=== PATIENT | male | born 1955 | race Caucasian/White ===

== ENCOUNTER 2018-09-24 14:15 | Observation (INO) | payer BC ==
[2018-09-24] MEDS ORDERED: SODIUM CHLORIDE 0.9% 500 ML 500 ML IV STA (14:48)
[2018-09-24] MEDS ORDERED: ASPIRIN 81 MG PO STA (14:48)
[2018-09-24] MEDS ORDERED: NITROGLYCERIN OINT 1 INCH/GM PACKET TOPICAL STA (14:48)
--- NOTE | 2018-09-24 14:54 | ED ---
General Adult HPI - General Chief complaint: Chest Pain Stated complaint: Chest pain, SOB Time Seen by Provider: 09/24/18 14:20 Source: patient, RN notes reviewed Mode of arrival: wheelchair Limitations: no limitations - History of Present Illness Initial comments: This a 63-year-old male who presents emergency Department complaining of epigastric abdominal pain and pain in both shoulder blades and pain going up the left side of his neck. Patient also states he has some tingling in both of his hands much more than the right than the left. Patient states it started yesterday when he went to work and it came on again today. Patient was post to go away on a trip today but when he got to the airport felt very weak and tired especially in his legs they decided come to the primary medical care doctor's office and they recommended that he comes to the emergency department. Patient denies any fever chills or cough per patient denies headache patient denies any numbness or weakness. Patient denies lightheadedness dizziness or near syncopal episode. Patient states currently he has no epigastric pain but still has pain in both upper trapezius muscles and into the upper back. - Related Data Home Medications Medication Instructions Recorded Confirmed Aspirin EC [Ecotrin Low Dose] 81 mg PO DAILY 09/24/18 09/24/18 Ibuprofen [Motrin Ib] 400 mg PO Q6H PRN 09/24/18 09/24/18 Allergies Allergy/AdvReac Type Severity Reaction Status Date / Time No Known Allergies Allergy Verified 09/24/18 14:40 Review of Systems ROS Statement: Those systems with pertinent positive or pertinent negative responses have been documented in the HPI. ROS Other: All systems not noted in ROS Statement are negative. Past Medical History Past Medical History: No Reported History History of Any Multi-Drug Resistant Organisms: None Reported Additional Past Surgical History / Comment(s): eye surgery Past Psychological History: No Psychological Hx Reported Smoking Status: Light tobacco smoker Past Alcohol Use History: Occasional Past Drug Use History: None Reported General Exam - General Exam Comments Initial Comments: GENERAL: Patient is well-developed and well-nourished. Patient is nontoxic and well- hydrated and is in mild distress. ENT: Neck is soft and supple. No significant lymphadenopathy is noted. Oropharynx is clear. Moist mucous membranes. Neck has full range of motion without eliciting any pain. EYES: The sclera were anicteric and conjunctiva were pink and moist. Extraocular movements were intact and pupils were equal round and reactive to light. Eyelids were unremarkable. PULMONARY: Unlabored respirations. Good breath sounds bilaterally. No audible rales rhonchi or wheezing was noted. CARDIOVASCULAR: There is a regular rate and rhythm without any murmurs gallops or rubs. ABDOMEN: Soft and nontender with normal bowel sounds. No palpable organomegaly was noted. There is no palpable pulsatile mass. SKIN: Skin is clear with no lesions or rashes and otherwise unremarkable. NEUROLOGIC: Patient is alert and oriented x3. Cranial nerves II through XII are grossly intact. Motor and sensory are also intact. Normal speech, volume and content. Symmetrical smile. MUSCULOSKELETAL: Normal extremities with adequate strength and full range of motion. No lower extremity swelling or edema. No calf tenderness. LYMPHATICS: No significant lymphadenopathy is noted PSYCHIATRIC: Normal psychiatric evaluation. Limitations: no limitations Course Vital Signs 09/24/18 14:21 Temperature 98.1 F Pulse Rate 82 Respiratory 18 Rate Blood Pressure 157/88 O2 Sat by Pulse 97 Oximetry Medical Decision Making - Medical Decision Making EKG shows normal sinus rhythm at 70 bpm AK interval is 190 QRS is 96 QT interval 364 QTC is 414. Patient's EKG shows no ST segment elevation or depression or T wave abnormalities are noted Chest x-ray shows no acute abnormalities. I did a CT of the patient's abdomen because it lipase was 650. It did not show any acute abnormalities. Patient states Nitropaste and aspirin seemed to take away a lot of the neck and upper back pain. I spoke with sound physician's agreed to admit the patient admitted the patient. I admitted the patient and wrote admitting orders. - Lab Data Result diagrams: 09/24/18 14:40 09/24/18 14:40 Lab Results 09/24/18 09/24/18 09/24/18 Range/Units 14:40 14:40 14:40 WBC 8.4 (3.8-10.6) k/uL RBC 5.82 (4.30-5.90) m/uL Hgb 17.7 H (13.0-17.5) gm/dL Hct 51.5 (39.0-53.0) % MCV 88.5 (80.0-100.0) fL MCH 30.5 (25.0-35.0) pg MCHC 34.4 (31.0-37.0) g/dL RDW 13.3 (11.5-15.5) % Plt Count 270 (150-450) k/uL Neutrophils % 74 % Lymphocytes % 20 % Monocytes % 4 % Eosinophils % 1 % Basophils % 0 % Neutrophils # 6.2 (1.3-7.7) k/uL Lymphocytes # 1.7 (1.0-4.8) k/uL Monocytes # 0.3 (0-1.0) k/uL Eosinophils # 0.1 (0-0.7) k/uL Basophils # 0.0 (0-0.2) k/uL PT 10.3 (9.0-12.0) sec INR 1.0 (<1.2) APTT 24.1 (22.0-30.0) sec Sodium 142 (137-145) mmol/L Potassium 4.5 (3.5-5.1) mmol/L Chloride 102 (98-107) mmol/L Carbon Dioxide 29 (22-30) mmol/L Anion Gap 11 mmol/L BUN 16 (9-20) mg/dL Creatinine 1.06 (0.66-1.25) mg/dL Est GFR (CKD-EPI)AfAm 85 (>60 ml/min/1.73 sqM) Est GFR (CKD-EPI)NonAf 74 (>60 ml/min/1.73 sqM) Glucose 99 (74-99) mg/dL Calcium 10.8 H (8.4-10.2) mg/dL Magnesium 2.0 (1.6-2.3) mg/dL Total Bilirubin 0.5 (0.2-1.3) mg/dL AST 30 (17-59) U/L ALT 31 (21-72) U/L Alkaline Phosphatase 54 (38-126) U/L Troponin I (0.000-0.034) ng/mL Total Protein 7.9 (6.3-8.2) g/dL Albumin 4.9 (3.5-5.0) g/dL Amylase 79 (30-110) U/L Lipase 656 H (23-300) U/L 09/24/18 Range/Units 14:40 WBC (3.8-10.6) k/uL RBC (4.30-5.90) m/uL Hgb (13.0-17.5) gm/dL Hct (39.0-53.0) % MCV (80.0-100.0) fL MCH (25.0-35.0) pg MCHC (31.0-37.0) g/dL RDW (11.5-15.5) % Plt Count (150-450) k/uL Neutrophils % % Lymphocytes % % Monocytes % % Eosinophils % % Basophils % % Neutrophils # (1.3-7.7) k/uL Lymphocytes # (1.0-4.8) k/uL Monocytes # (0-1.0) k/uL Eosinophils # (0-0.7) k/uL Basophils # (0-0.2) k/uL PT (9.0-12.0) sec INR (<1.2) APTT (22.0-30.0) sec Sodium (137-145) mmol/L Potassium (3.5-5.1) mmol/L Chloride (98-107) mmol/L Carbon Dioxide (22-30) mmol/L Anion Gap mmol/L BUN (9-20) mg/dL Creatinine (0.66-1.25) mg/dL Est GFR (CKD-EPI)AfAm (>60 ml/min/1.73 sqM) Est GFR (CKD-EPI)NonAf (>60 ml/min/1.73 sqM) Glucose (74-99) mg/dL Calcium (8.4-10.2) mg/dL Magnesium (1.6-2.3) mg/dL Total Bilirubin (0.2-1.3) mg/dL AST (17-59) U/L ALT (21-72) U/L Alkaline Phosphatase (38-126) U/L Troponin I <0.012 (0.000-0.034) ng/mL Total Protein (6.3-8.2) g/dL Albumin (3.5-5.0) g/dL Amylase (30-110) U/L Lipase (23-300) U/L Disposition Clinical Impression: Atypical chest pain, Elevated lipase Disposition: ADMITTED IP TO THIS [facility] Referrals: Valentina Maldonado MD [Primary Care Provider] - 1-2 days Time of Disposition: 17:12
--- NOTE | 2018-09-24 15:14 | XR ---
EXAMINATION TYPE: XR chest 2V DATE OF EXAM: 09/24/2018 COMPARISON: NONE HISTORY: Chest pain TECHNIQUE: Frontal and lateral views of the chest are obtained. FINDINGS: There is no focal air space opacity, pleural effusion, or pneumothorax seen. The cardiac silhouette size is within normal limits. The osseous structures are intact. IMPRESSION: No acute cardiopulmonary process.
[2018-09-24 15:18] LABS: Basophils % (A) 0 %; Eosinophils # (A) 0.1 k/uL (0-0.7); Eosinophils % (A) 1 %; HCT 51.5 % (39.0-53.0); HGB 17.7 gm/dL (13.0-17.5); Lymphocytes # (A) 1.7 k/uL (1.0-4.8); Lymphocytes % (A) 20 %; MCH 30.5 pg (25.0-35.0); MCHC 34.4 g/dL (31.0-37.0); MCV 88.5 fL (80.0-100.0); Mean Platelet Volume 7.8; Monocytes # (A) 0.3 k/uL (0-1.0); Monocytes % (A) 4 %; Neutrophils # (A) 6.2 k/uL (1.3-7.7); Neutrophils % (A) 74 %; Platelet Count 270 k/uL (150-450); RBC 5.82 m/uL (4.30-5.90); RDW 13.3 % (11.5-15.5); WBC 8.4 k/uL (3.8-10.6)
[2018-09-24 15:19] LABS: Albumin 4.9 g/dL (3.5-5.0); Calcium 10.8 mg/dL (8.4-10.2); Potassium 4.5 mmol/L (3.5-5.1); Total Bilirubin 0.5 mg/dL (0.2-1.3); Total Protein 7.9 g/dL (6.3-8.2)
[2018-09-24 15:22] LABS: Partial Thromboplastin Time 24.1 sec (22.0-30.0); Prothrombin Time 10.3 sec (9.0-12.0)
--- NOTE | 2018-09-24 17:03 | CT ---
EXAMINATION TYPE: CT abdomen pelvis w con DATE OF EXAM: 09/24/2018 COMPARISON: None HISTORY: epigastric pain CT DLP: 900.2 mGycm Automated exposure control for dose reduction was used. TECHNIQUE: Helical acquisition of images was performed from the lung bases through the pelvis. CONTRAST: Performed without Oral Contrast and with IV Contrast, patient injected with 100 mL of Isovue 300. FINDINGS: Lung bases are clear. There is no pleural effusion. Heart size is normal. There is no pericardial eff usion. Stomach spleen pancreas gallbladder or liver appear normal. Bile ducts are not dilated. There is no adrenal mass. Kidneys show satisfactory contrast opacification. There is no hydronephrosi s. Bladder distends smoothly. There is no inguinal hernia. There is no free fluid in the pelvis. There is no ascites or free air. There is no mesenteric edema. Appendix is not seen. There is no sign of thickened appendix. There is no sign of bowel obstruction. There are large bowel diverticula. The re is no sign of diverticulitis. There is degenerative disc space narrowing at L4-5 L5-S1 with vacuum disc. There is similar change al so at L3-4. I see no bony destructive process. IMPRESSION: THERE IS SOME DIVERTICULOSIS OF THE DESCENDING COLON. NO SIGN OF ACUTE ABDOMEN AND PELVIS. I DO NOT S EE A CAUSE FOR EPIGASTRIC PAIN.
[2018-09-24] MEDS ORDERED: NITROGLYCERIN SL TABS 0.4 MG TAB SUBLINGUAL PRN (17:13)
[2018-09-24] MEDS ORDERED: HYDROcodone/APAP 5-325MG 1 EACH TAB PO PRN (18:59)
[2018-09-24] MEDS ORDERED: ONDANSETRON 4 MG/2 ML VIAL IVP PRN (18:59)
[2018-09-24] MEDS ORDERED: MELATONIN 3 MG TABLET PO PRN (18:59)
[2018-09-24] MEDS ORDERED: NALOXONE 0.4 MG/ML 1 ML VIAL IV PRN (18:59)
[2018-09-24] MEDS ORDERED: ACETAMINOPHEN TAB 325 MG TAB PO PRN (18:59)
--- NOTE | 2018-09-24 19:02 | P.HPIM ---
History of Present Illness H&P Date: 09/24/18 Chief Complaint: back pain Patient is a 63-year-old male with no significant past medical history disease Dr. Maldonado. He presented to the ER with complaints of back pain and lower extremity weakness. In the ER he underwent an extensive evaluation. His vital signs within normal limits on arrival. Initial laboratory analysis showed a slightly elevated lipase at 656 and calcium level of 10.8. His troponin was negative. There is concern that this might be related to cardiac etiology. EKG showed normal sinus rhythm at a rate of [address]-T wave changes. He underwent a CT abdomen and pelvis which showed no acute process. He was given a dose of aspirin and nitro. His pain eased from 4-2. Patient states that yesterday when he was at work he started having some back pain. He describes it as in between his shoulder blades with some radiation up into his neck that feels like a stiffness. He states it has been constant. It is associated with some right arm tingling. He states that the pain is at a with an intermittent tingling. It is not associated with any shortness of breath, nausea, vomiting, lightheadedness, or diaphoresis. He did feel slightly flushed yesterday. He states that he took 2 ibuprofen yesterday secondary to a headache but otherwise does not use NSAIDs on a regular basis. He also noted some epigastric pain across the bottom of his rib cage but denies any pain up into his chest. Today he went to the airport to leave on a business trip. When he was walking through the airport he felt very fatigued and as if his legs were heavy and difficult to move. He did not have any lower extremity numbness or tingling at that point in time. He then elected not to on the airplane and proceeded to the hospital. He states his father from myocardial infarction at age 70. He has no known history of any cardiac disease and he has never had a stress test. He denies any recent cough, cold, fever, flu, dysuria. He denies any recent weight loss or weight gain. He has not done any unusual activities. He denies any injury to his back. He states his last set of blood work was approximately 4 years ago. Review of Systems Pertinent positives and negatives as discussed in HPI, a complete review of systems was performed and all other systems are negative. Past Medical History Past Medical History: No Reported History History of Any Multi-Drug Resistant Organisms: None Reported Additional Past Surgical History / Comment(s): Eye surgery 2 as a child for strabismus Past Psychological History: No Psychological Hx Reported Smoking Status: Light tobacco smoker Past Alcohol Use History: Occasional Past Drug Use History: None Reported Additional History: Smokes a cigar every once in a while but not on a regular basis, drinks 2 beers weekly. - Past Family History Father Family Medical History: Myocardial Infarction ([place]) Additional Family Medical History / Comment(s): from myocardial infarction at age 70 Mother Additional Family Medical History / Comment(s): Mother-dementia Medications and Allergies Home Medications Medication Instructions Recorded Confirmed Type Aspirin EC [Ecotrin Low Dose] 81 mg PO DAILY 09/24/18 09/24/18 History Ibuprofen [Motrin Ib] 400 mg PO Q6H PRN 09/24/18 09/24/18 History Allergies Allergy/AdvReac Type Severity Reaction Status Date / Time No Known Allergies Allergy Verified 09/24/18 14:40 Physical Exam Osteopathic Statement: *. No significant issues noted on an osteopathic structural exam other than those noted in the History and Physical/Consult. Vitals: Vital Signs Temp Pulse Resp BP Pulse Ox 09/24/18 14:21 98.1 F 82 18 157/88 97 Intake and Output 09/24/18 09/24/18 09/24/18 06:59 14:59 22:59 Other: Weight 83.915 kg General: non toxic, no distress, appears at stated age, normal weight Derm: no unusual rashes/lesions no unusual ecchymoses, warm, dry Head: atraumatic, normocephalic, symmetric Eyes: EOMI, no lid lag, anicteric sclera, pupils equal round reactive to light ENT: Nose and ears atraumatic, no thrush, no pharyngeal erythema Neck: No thyromegaly, no cervical lymphadenopathy, trachea midline, supple Mouth: no lip lesion, mucus membranes moist Cardiovascular: S1S2 reg, no murmur, positive posterior tibial pulse bilateral, no edema, capillary refill less than 2 seconds Lungs: CTA bilateral, no rhonchi, no rales , no accessory muscle use Abdominal: soft, nontender to palpation, no guarding, no appreciable organomegaly, normal bowel sounds Ext: no gross muscle atrophy, muscle strength 5 out of 5 in all 4 extremities grossly, no contractures, complains of cramping in left leg when raising, positive Spurling's test on the right, no pain to palpation over spinous process of cervical and thorasic spine Neuro: CN II-XI grossly intact, light touch intact all 4 extremities, finger to nose within normal limits, Psych: Alert, oriented, appropriate affect Results CBC & Chem 7: 09/24/18 14:40 09/24/18 14:40 Labs: Abnormal Lab Results - Last 24 Hours (Table) 09/24/18 09/24/18 Range/Units 14:40 14:40 Hgb 17.7 H (13.0-17.5) gm/dL Calcium 10.8 H (8.4-10.2) mg/dL Lipase 656 H (23-300) U/L Comments: EKG is reviewed by myself revealed normal sinus rhythm at a rate of 78, LA 190, QRS 96, QTC 414, no significant ST-T wave changes Chest x-ray: report reviewed CT scan - abdomen: report reviewed Thrombosis Risk Factor Assmnt - DVT/VTE Prophylaxis DVT/VTE Prophylaxis: Low risk, early ambulation encouraged Assessment and Plan Assessment: Back pain with pain and numbness radiating into the right neck and arm, concern for anginal equivalent -Serial troponin, aspirin, echo in a.m., cardiology consultation, check lipid profile -Concern for cervical radiculopathy -If pain continues would consider CT cervical and thoracic spine to rule out cervical disc disease/lesion Hypercalcemia -Undetermined significance -Gentle IV fluids overnight as patient has not ate or drink much today -Repeat in a.m. -If remains elevated in a.m. would consider CTA rule out bone lesion Elevated lipase without signs of pancreatitis on computed tomography scan -IV fluids overnight -Repeat lipase in a.m. Family history of cardiac disease Intermittent tobacco abuse - cessation - no indication for nicotine replacement The patient is placed in observation with an anticipated less than 2 per night stay for evaluation of back pain. Surrogate decision-maker: - Elena CODE STATUS:Full, no prolonged mechanical ventilation if no hope of recovery DVT prophylaxis: early ambulation Discussed with: patient, nursing Anticipated discharge date: in AM Anticipated discharge place: home A total of 65 minutes was spent on the care of this complex patient more than 50% of the time was spent in counseling and care coordination.
[2018-09-24] MEDS: NITROGLYCERIN OINT 1 INCH/GM PACKET TOPICAL SCH (19:36)
[2018-09-24] MEDS: SODIUM CHLORIDE 0.9% 1,000 ML IV SCH (19:39)
[2018-09-25] MEDS: NITROGLYCERIN OINT 1 INCH/GM PACKET TOPICAL SCH ×2 (01:10→06:05)
[2018-09-25 03:08] LABS: Calcium 9.3 mg/dL (8.4-10.2); Potassium 3.9 mmol/L (3.5-5.1)
[2018-09-25 07:45] VITALS: RESP 18
--- NOTE | 2018-09-25 08:18 | P.CRDCN ---
History of Present Illness Consult date: 09/25/18 History of present illness: This is a 63-year-old gentleman with no significant past medical history started having discomfort in between the shoulders and the back starting morning. The toe was radiating from one side to the other of the back and also to some extent to the anterior aspect of the chest. This was not respirophasic. It was not associated with any physical activity. Yesterday morning patient went to the emergency room and continued to have this discomfort and also felt that the legs were weak. Patient did not feel comfortable and cancel his flight and came back. His EKGs did not reveal any acute changes. His cardiac enzyme studies have been negative. He seemed more comfortable this morning. His lipase was slightly elevated. The etiology of his symptoms are not clear. The possibility of a disc disease to be considered. Patient does complain of some tingling and numbness in both hands. From [facility] standpoint we will going to get an echocardiogram done. If the echocardiogram is normal and patient's chest pains are relieved, patient could be discharged home to consider for an outpatient stress test. If the echo Card[place] showed any abnormalities or if patient continues to have the symptoms, the test could be done as an inpatient. The computed tomography scan of the cervical spine also is a good idea to rule out any disc disease. Past Medical History Past Medical History: No Reported History History of Any Multi-Drug Resistant Organisms: None Reported Additional Past Surgical History / Comment(s): Eye surgery 2 as a child for strabismus Past Anesthesia/Blood Transfusion Reactions: No Reported Reaction Additional Past Anesthesia/Blood Transfusion Reaction / Comment(s): patient has never had any anesthesia or blood transfusion Past Psychological History: No Psychological Hx Reported Smoking Status: Light tobacco smoker Past Alcohol Use History: Occasional Past Drug Use History: None Reported - Past Family History Father Family Medical History: Myocardial Infarction ([place]) Additional Family Medical History / Comment(s): from myocardial infarction at age 70 Mother History Unknown: Yes Family Medical History: Dementia Additional Family Medical History / Comment(s): Mother-dementia Medications and Allergies Home Medications Medication Instructions Recorded Confirmed Type Aspirin EC [Ecotrin Low Dose] 81 mg PO DAILY 09/24/18 09/24/18 History Ibuprofen [Motrin Ib] 400 mg PO Q6H PRN 09/24/18 09/24/18 History Allergies Allergy/AdvReac Type Severity Reaction Status Date / Time No Known Allergies Allergy Verified 09/24/18 14:40 Physical Exam Vitals: Vital Signs Temp Pulse Pulse Resp BP BP Pulse Ox 09/25/18 07:57 97 09/25/18 07:10 98.0 F 61 18 127/81 97 09/25/18 03:57 97.7 F 59 L 16 115/68 96 09/25/18 03:47 16 09/25/18 00:00 16 09/24/18 23:52 97.8 F 62 16 115/61 96 09/24/18 22:30 16 09/24/18 21:00 97.9 F 72 16 135/73 96 09/24/18 20:50 98.6 F 79 68 H 124/84 95 09/24/18 19:30 79 124/84 96 09/24/18 17:40 124/74 93 L 09/24/18 17:10 135/85 95 09/24/18 16:10 71 14 134/80 96 09/24/18 15:40 70 6 L 131/84 97 09/24/18 14:21 98.1 F 82 18 157/88 97 Intake and Output 09/24/18 09/25/18 09/25/18 22:59 06:59 14:59 Other: Voiding Method Toilet Toilet # Voids 1 GENERAL EXAM: Patient is alert and oriented and doesn't appear to be in any acute distress HEENT: Normocephalic. Normal reaction of pupils, equal size, normal range of extraocular motion. No erythema or exudates in the throat. NECK: No masses, no nuchal rigidity. CHEST: No chest wall deformity. LUNGS: Equal air entry with no crackles or wheeze. HEART: S1 and S2 normal with no audible mumurs or gallops. Regular rhythm, femorals equal on both sides.. ABDOMEN: No hepatosplenomegaly, normal bowel sounds, no guarding or rigidity. SKIN: No rashes CENTRAL NERVOUS SYSTEM: No focal deficits. EXTREMITIES: No cyanosis, clubbing or edema. Results 09/24/18 14:40 09/25/18 02:50 Cardiac Enzymes 09/24/18 09/24/18 09/24/18 Range/Units 14:40 14:40 21:25 AST 30 (17-59) U/L Troponin I <0.012 <0.012 (0.000-0.034) ng/mL 09/25/18 Range/Units 02:50 AST (17-59) U/L Troponin I <0.012 (0.000-0.034) ng/mL Coagulation 09/24/18 Range/Units 14:40 PT 10.3 (9.0-12.0) sec APTT 24.1 (22.0-30.0) sec Lipids 09/25/18 Range/Units 02:50 Triglycerides 87 (<150) mg/dL Cholesterol 155 (<200) mg/dL HDL Cholesterol 33 L (40-60) mg/dL CBC 09/24/18 Range/Units 14:40 WBC 8.4 (3.8-10.6) k/uL RBC 5.82 (4.30-5.90) m/uL Hgb 17.7 H (13.0-17.5) gm/dL Hct 51.5 (39.0-53.0) % Plt Count 270 (150-450) k/uL Comprehensive Metabolic Panel 09/24/18 09/25/18 Range/Units 14:40 02:50 Sodium 142 139 (137-145) mmol/L Potassium 4.5 3.9 (3.5-5.1) mmol/L Chloride 102 108 H (98-107) mmol/L Carbon Dioxide 29 26 (22-30) mmol/L BUN 16 19 (9-20) mg/dL Creatinine 1.06 1.08 (0.66-1.25) mg/dL Glucose 99 101 H (74-99) mg/dL Calcium 10.8 H 9.3 (8.4-10.2) mg/dL AST 30 (17-59) U/L ALT 31 (21-72) U/L Alkaline Phosphatase 54 (38-126) U/L Total Protein 7.9 (6.3-8.2) g/dL Albumin 4.9 (3.5-5.0) g/dL Current Medications Generic Name Dose Route Start Last Admin Trade Name Freq PRN Reason Stop Dose Admin Acetaminophen 650 mg 09/24/18 18:59 09/24/18 22:36 Tylenol Tab PO 650 mg Q6HR PRN Administration Mild Pain or Fever > 100.5 Hydrocodone Bitart/Acetaminophen 1 each 09/24/18 18:59 Basile 5-325 PO Q4HR PRN Moderate Pain Aspirin 81 mg 09/25/18 09:00 Aspirin PO DAILY ASHLIE Sodium Chloride 1,000 mls @ 75 mls/hr 09/24/18 19:00 09/24/18 19:39 Saline 0.9% IV 75 mls/hr .[id number] ASHLIE Administration Melatonin 3 mg 09/24/18 18:59 Melatonin PO HS PRN Insomnia Naloxone HCl 0.2 mg 09/24/18 18:59 Narcan IV Q2M PRN Opioid Reversal Nitroglycerin 0.4 mg 09/24/18 17:13 Nitrostat SUBLINGUAL Q5M PRN Chest Pain Ondansetron HCl 4 mg 09/24/18 18:59 Zofran IVP Q8HR PRN Nausea And Vomiting Intake and Output 09/24/18 09/25/18 09/25/18 22:59 06:59 14:59 Other: Voiding Method Toilet Toilet # Voids 1 09/24/18 14:40 09/25/18 02:50 EKG Interpretations (text) Sinus rhythm Assessment and Plan (1) Atypical chest pain Current Visit: Yes Status: Acute Code(s): R07.89 - OTHER CHEST PAIN SNOMED Code(s): 391220221 (2) Elevated lipase Current Visit: Yes Status: Acute Code(s): R74.8 - ABNORMAL LEVELS OF OTHER SERUM ENZYMES SNOMED Code(s): 577277044 Plan: We'll get an echocardiogram done. If the echo shows normal wall motion without any significant segmental wall motion defects and he patient remains free of pain, patient could be discharged home to have an outpatient stress test. Computed tomography scan of the cervical spine may also be considered.
[2018-09-25] MEDS: SODIUM CHLORIDE 0.9% 1,000 ML IV SCH (08:31)
[2018-09-25] MEDS ORDERED: ASPIRIN 325 MG TAB PO SCH (09:00)
[2018-09-25] MEDS ORDERED: ASPIRIN 81 MG PO SCH (09:00)
[2018-09-25 12:10] VITALS: BP 134/66; PULSE 65; TEMP 98.1
--- NOTE | 2018-09-25 14:37 | P.DS ---
Providers Date of admission: 09/24/18 18:21 Expected date of discharge: 09/25/18 Attending physician: Trish Boudreaux DO Consults: 09/24/18 17:13 Consult Physician Urgent Consulting Provider: [facility] Consult Reason/Comments: Atypical angina Do you want consulting provider notified?: Yes Primary care physician: Valentina Maldonado [place] Hospital Course: Discharge Diagnosis: Thoracic strain with possible radiculopathy Hypercalcemia due to dehydration (resolved with fluids) Family history of cardiac disease Intermittent tobacco use Hospital Course: Patient is a 63-year-old male with no significant past medical history disease Dr. Maldonado. He presented to the ER with complaints of back pain and lower extremity weakness. In the ER he underwent an extensive evaluation. His vital signs within normal limits on arrival. Initial laboratory analysis showed a slightly elevated lipase at 656 and calcium level of 10.8. His troponin was negative. There was concern from the ED physicians that this might be related to cardiac etiology. EKG showed normal sinus rhythm at a rate of [address]-T wave changes. He underwent a CT abdomen and pelvis which showed no acute process. He was given a dose of aspirin and nitro. His pain eased from 4-2. He was admitted for further monitoring. Troponin remained negative, telemetry unremarkable. Seen by cardiology who felt an outpatient stress test was appropriate. His cholesterol profile within acceptable range. Patient's back pain eased overnight. He was still having some numbness in his right hand. Echocardiogram pending at time of discharge. Patient was determined medically stable for discharge is felt that he likely had thoracic strain with possible radiculopathy. He was found to have a positive Spurling's test with increased arm tsang. He will try Motrin 600 mg around the clock for the next 3 days[address] He'll follow Dr. Maldonado in the office next week. I have advised him that if his numbness has not improved for his back pain worsens he may need additional imaging to ensure that he does not have a nerve impingement. He'll follow with Dr. Grant in the cardiology office for outpatient stress test. If there are any abnormalities on his echocardiogram and will call him with directions on what proceed with next. Patient also has not seen his primary care physician over 4 years and is due for age-related screening up-to-date. Patient seen and examined at bedside. Having some back pain which is easier than yesterday, still having some right arm tingling. No chest pain or shortness of breath. Vital signs reviewed and stable. General: non toxic, no distress, appears at stated age Derm: warm, dry Head: atraumatic, normocephalic, symmetric Eyes: EOMI, no lid lag, anicteric sclera Mouth: no lip lesion, mucus membranes moist Cardiovascular: S1S2 reg, no murmur, positive posterior tibial pulse bilateral, Lungs: CTA bilateral, no rhonchi, no rales , no accessory muscle use Abdominal: soft, nontender to palpation, no guarding, no appreciable organomegaly Ext: no gross muscle atrophy, no edema, no contractures Neuro: CN II-XI grossly intact, no focal neuro deficits Psych: Alert, oriented, appropriate affect A total of 25 minutes of time were spent preparing this complex discharge summary . Pertinent Studies: CT abdomen and pelvis-diverticular disease Chest x-ray-no acute cardiopulmonary process Patient Condition at Discharge: Stable Plan - Discharge Summary Discharge Rx Participant: No New Discharge Prescriptions: New Ibuprofen [Motrin] 600 mg PO Q8HR PRN #30 tab PRN Reason: Pain Continue Aspirin EC [Ecotrin Low Dose] 81 mg PO DAILY Discontinued Ibuprofen [Motrin Ib] 400 mg PO Q6H PRN PRN Reason: Pain Discharge Medication List Aspirin EC [Ecotrin Low Dose] 81 mg PO DAILY 09/24/18 [History] Ibuprofen [Motrin] 600 mg PO Q8HR PRN #30 tab 09/25/18 [Rx] Follow up Appointment(s)/Referral(s): Ally Jarrett MD [STAFF PHYSICIAN] - 1 Week Valentina Maldonado MD [Primary Care Provider] - 1-2 days Patient Instructions/Handouts: Cervical Strain (GEN), Thoracic Pain (ED), Thoracic Back Strain (ED) Activity/Diet/Wound Care/Special Instructions: Diet: heart health Activity: as tolerated, no strenuous exercise, lifting greater than 10 pounds until seen by Dr. Marc Discharge Disposition: HOME SELF-CARE Pending Studies Pending Results: Echocardiogram
--- NOTE | 2018-09-27 16:18 | ECHOF ---
Referral Reason:chest pain MEASUREMENTS -------- HEIGHT: 182.9 cm WEIGHT: 83.9 kg BP: 127/81 RVIDd: 3.4 cm (< 3.3) IVSd: 1.1 cm (0.6 - 1.1) LVIDd: 4.5 cm (3.9 - 5.3) LVPWd: 1.0 cm (0.6 - 1.1) IVSs: 1.6 cm LVIDs: 2.8 cm LVPWs: 1.5 cm LA Diam: 3.2 cm (2.7 - 3.8) LAESV Index (A-L): 12.89 ml/m Ao Diam: 3.2 cm (2.0 - 3.7) AV Cusp: 2.2 cm (1.5 - 2.6) MV EXCURSION: 17.007 mm (> 18.000) MV EF SLOPE: 93 mm/s (70 - 150) EPSS: 1.0 cm MV E Krishan: 0.85 m/s MV DecT: 198 ms MV A Krishan: 0.77 m/s MV E/A Ratio: 1.11 FINDINGS -------- Sinus rhythm. This was a technically good study. The left ventricular size is normal. Left ventricular wall thickness is normal. Overall left vent ricular systolic function is normal with, an EF between 60 - 65 %. The right ventricle is mildly enlarged. Normal LA size by volume 22+/-6 ml/m2. The right atrium is normal in size. Interatrial and interventricular septum intact. The aortic valve is trileaflet and appears structurally normal. The mitral valve is normal. The tricuspid valve appears structurally normal. The pulmonic valve was not well visualized. The aortic root size is normal. Normal inferior vena cava with normal inspiratory collapse consistent with estimated right atrial pre ssure of 5 mmHg. There is no pericardial effusion. CONCLUSIONS -------- 1. Sinus rhythm. 2. This was a technically good study. 3. The left ventricular size is normal. 4. Left ventricular wall thickness is normal. 5. Overall left ventricular systolic function is normal with, an EF between 60 - 65 %. 6. The right ventricle is mildly enlarged. 7. Normal LA size by volume 22+/-6 ml/m2. 8. The right atrium is normal in size. 9. Interatrial and interventricular septum intact. 10. The aortic valve is trileaflet and appears structurally normal. 11. The mitral valve is normal. 12. The tricuspid valve appears structurally normal. 13. The pulmonic valve was not well visualized. 14. The aortic root size is normal. 15. Normal inferior vena cava with normal inspiratory collapse consistent with estimated right atrial pressure of 5 mmHg. 16. There is no pericardial effusion. SOCK LINER: Maddison Collins RDCS
== END 2018-09-25 14:40 | disposition home or self-care (01) ==
LOC: EC 14:15 → 1SOBS 18:21
PROVIDERS: ADMIT Internal Medicine; ATTEND Internal Medicine
DX: S29.012A Strain of muscle and tendon of back wall of thorax, initial encounter (principal); R20.2 Paresthesia of skin; R20.0 Anesthesia of skin; R07.89 Other chest pain; R74.8 Abnormal levels of other serum enzymes; E86.0 Dehydration; E83.52 Hypercalcemia; F17.200 Nicotine dependence, unspecified, uncomplicated; Z71.6 Tobacco abuse counseling; Z79.82 Long term (current) use of aspirin; Z82.49 Family history of ischemic heart disease and other diseases of the circulatory system
CPT/HCPCS: 96360; 96361; 99285; 36415; 94760; 93005; 93306; 80061; 80053; 80048; 82150; 83690 ×2; 83735; 84484 ×2; 85025; 85610; 85730; 71046; 74177; G0378 ×2; Q9967

== ENCOUNTER 2022-01-01 09:03 | Emergency (ER) | payer BC, MEDICARE ==
--- NOTE | 2022-01-01 09:39 | ED ---
Chest Pain HPI - General Chief Complaint: Chest Pain Stated Complaint: right arm & chest pain Time Seen by Provider: 01/01/22 09:18 Source: patient Mode of arrival: ambulatory Limitations: no limitations - History of Present Illness Initial Comments: 66-year-old male with no past medical history presents to the emergency room in with reported right shoulder pain. States that he went golfing on Thursday. Afterwards he began having right shoulder and right arm pain. States it is reproducible with palpation of the scapula and movement of the arm. States the pain is relieved when he puts his arm above his head. The pain has progressed and has now come around to the anterior side of his right chest. He denies previous history of cardiac disease. Did have cardiac workup in 2007 which was negative for any heart conditions. He denies any shortness of breath. No nausea or vomiting. Took Motrin with some relief in his symptoms. No fevers or cough. No other alleviating, precipitating or modifying factors - Related Data Home Medications Medication Instructions Recorded Confirmed Aspirin EC [Ecotrin Low Dose] 81 mg PO DAILY 09/24/18 01/01/22 Previous Rx's Medication Instructions Recorded Cyclobenzaprine [Flexeril] 10 mg PO TID #30 tab 01/01/22 predniSONE [Deltasone] 20 mg PO BID #10 tab 01/01/22 Allergies Allergy/AdvReac Type Severity Reaction Status Date / Time No Known Allergies Allergy Verified 01/01/22 11:21 Review of Systems ROS Statement: Those systems with pertinent positive or pertinent negative responses have been documented in the HPI. ROS Other: All systems not noted in ROS Statement are negative. EKG Findings - EKG Comments: EKG Findings:: EKG demonstrates sinus rhythm with a rate of 77. SC interval 164. QRS 96. QTC of 401. No acute ST segment elevations or depressions Past Medical History Past Medical History: No Reported History History of Any Multi-Drug Resistant Organisms: None Reported Additional Past Surgical History / Comment(s): Eye surgery 2 as a child for strabismus Past Anesthesia/Blood Transfusion Reactions: No Reported Reaction Additional Past Anesthesia/Blood Transfusion Reaction / Comment(s): patient has never had any anesthesia or blood transfusion Past Psychological History: No Psychological Hx Reported Smoking Status: Current some day smoker Past Alcohol Use History: Occasional Past Drug Use History: None Reported - Past Family History Father Family Medical History: Myocardial Infarction ([place]) Additional Family Medical History / Comment(s): from myocardial infarction at age 70 Mother History Unknown: Yes Family Medical History: Dementia Additional Family Medical History / Comment(s): Mother-dementia General Exam Limitations: no limitations General appearance: alert, in no apparent distress Head exam: Present: atraumatic, normocephalic, normal inspection Eye exam: Present: normal appearance, PERRL, EOMI. Absent: scleral icterus, conjunctival injection, periorbital swelling ENT exam: Present: normal exam, mucous membranes moist Neck exam: Present: normal inspection. Absent: tenderness, meningismus, lymphadenopathy Respiratory exam: Present: normal lung sounds bilaterally. Absent: respiratory distress, wheezes, rales, rhonchi, stridor Cardiovascular Exam: Present: regular rate, normal rhythm, normal heart sounds. Absent: systolic murmur, diastolic murmur, rubs, gallop, clicks GI/Abdominal exam: Present: soft, normal bowel sounds. Absent: distended, tenderness, guarding, rebound, rigid Extremities exam: Present: full ROM, tenderness (to the deltoid region of the right shoulder. no obvious deformity. no shoulder joint tenderness. 2+ DP and PT pulses), normal capillary refill. Absent: pedal edema, joint swelling, calf tenderness Back exam: Present: normal inspection Neurological exam: Present: alert, oriented X3, CN II-XII intact Psychiatric exam: Present: normal affect, normal mood Skin exam: Present: warm, dry, intact, normal color. Absent: rash Course Vital Signs 01/01/22 01/01/22 01/01/22 09:04 09:18 10:22 Temperature 98 F 97.6 F 98.2 F Pulse Rate 90 78 70 Respiratory 16 18 16 Rate Blood Pressure 164/83 165/88 149/80 O2 Sat by Pulse 96 96 96 Oximetry 01/01/22 11:52 Temperature Pulse Rate 67 Respiratory 16 Rate Blood Pressure 148/86 O2 Sat by Pulse 95 Oximetry Chest Pain MDM - MDM Upon arrival patient is placed into room 7. Thorough history and physical exam is performed. Patient was laced on continuous pulse ox and cardiac monitoring. 12-lead EKG is obtained. Laboratory studies are conducted and reviewed. Troponin is negative. Chest x-ray, cervical spine x-ray and shoulder x-rays performed. Patient does have right AC joint arthopathy. Cervical spine demonstrates degenerative disc disease at C5-C6, C6- 7. Patient was given a dose of steroids and offered a muscle relaxer however refused. Discuss results with the patient. Feels comfortable discharge home. He will be placed on steroids and muscle relaxer an outpatient setting. Certainly follow up his primary care doctor in 2-4 days return for any new or worsening symptoms. Patient was agreeable to plan and discharged home in stable condition. Admission was offered however patient refused. Disposition Clinical Impression: Cervical radiculopathy, Neck pain, Arm pain, Atypical chest pain Disposition: HOME SELF-CARE Condition: Stable Instructions (If sedation given, give patient instructions): Cervical Radiculopathy (ED) Additional Instructions: Please take the prednisone as directed starting tomorrow January 02. Do not take any NSAID products (aleve, advil, ibprofen) while taking the prednisone. You may take Tylenol. Follow-up with primary care doctor in 2-4 days and return for any new or worsening symptoms Prescriptions: predniSONE [Deltasone] 20 mg PO BID #10 tab Cyclobenzaprine [Flexeril] 10 mg PO TID #30 tab Is patient prescribed a controlled substance at d/c from ED?: No Referrals: Valentina Maldonado MD [Primary Care Provider] - 1-2 days Time of Disposition: 11:41
[2022-01-01 10:04] LABS: Basophils % (A) 0 %; Eosinophils # (A) 0.4 k/uL (0-0.7); Eosinophils % (A) 5 %; HCT 52.1 % (39.0-53.0); HGB 17.4 gm/dL (13.0-17.5); Lymphocytes # (A) 1.2 k/uL (1.0-4.8); Lymphocytes % (A) 17 %; MCH 30.4 pg (25.0-35.0); MCHC 33.4 g/dL (31.0-37.0); MCV 91.1 fL (80.0-100.0); Monocytes # (A) 0.3 k/uL (0-1.0); Monocytes % (A) 5 %; Neutrophils # (A) 4.8 k/uL (1.3-7.7); Neutrophils % (A) 71 %; Platelet Count 217 k/uL (150-450); RBC 5.72 m/uL (4.30-5.90); RDW 12.9 % (11.5-15.5); WBC 6.8 k/uL (3.8-10.6)
[2022-01-01 10:08] LABS: Albumin 4.6 g/dL (3.5-5.0); Calcium 9.7 mg/dL (8.4-10.2); Magnesium 1.9 mg/dL (1.6-2.3); Potassium 4.9 mmol/L (3.5-5.1); Total Bilirubin 0.6 mg/dL (0.2-1.3); Total Protein 7.4 g/dL (6.3-8.2)
[2022-01-01 10:13] LABS: Partial Thromboplastin Time 25.4 sec (22.0-30.0); Prothrombin Time 10.8 sec (9.0-12.0)
[2022-01-01 10:23] VITALS: RESP 16; TEMP 98.2
--- NOTE | 2022-01-01 10:41 | XR ---
EXAMINATION TYPE: XR cervical spine comp DATE OF EXAM: 01/01/2022 COMPARISON: NONE HISTORY: Pain TECHNIQUE: Four views are submitted. FINDINGS: The odontoid is intact. There are no compression deformities. The prevertebral soft tissue structur es are within normal limits. There is degenerative disc disease C5-C6 and C6-C7. IMPRESSION: 1. Degenerative disc disease C5-6 and C6-C7..
--- NOTE | 2022-01-01 10:42 | XR ---
EXAMINATION TYPE: XR chest 2V DATE OF EXAM: 01/01/2022 COMPARISON: NONE TECHNIQUE: PA and lateral views submitted. HISTORY: Chest pain FINDINGS: The lungs are clear and there is no pneumothorax, pleural effusion, or focal pneumonia. Heart size normal. Hyperinflation suggests COPD. Degenerative changes of the spine. IMPRESSION: 1. Correlate for COPD.
--- NOTE | 2022-01-01 10:43 | XR ---
EXAMINATION TYPE: XR shoulder complete RT DATE OF EXAM: 01/01/2022 COMPARISON: NONE HISTORY: Pain TECHNIQUE: Three views are submitted. FINDINGS: The osseous structures are intact. There is no acute fracture or dislocation. The AC joint arthropa thy noted.. IMPRESSION: 1. AC joint arthropathy.
[2022-01-01] MEDS ORDERED: predniSONE 20 MG TAB PO STA (11:38)
[2022-01-01 11:54] VITALS: BP 148/86; PULSE 67
== END 2022-01-01 11:54 | disposition home or self-care (01) ==
LOC: EC 09:03
DX: R07.89 Other chest pain (principal); M54.12 Radiculopathy, cervical region; M54.2 Cervicalgia; M79.601 Pain in right arm; F17.200 Nicotine dependence, unspecified, uncomplicated
CPT/HCPCS: 36415; 93005; 83880; 80053; 83690; 83735; 84484; 85025; 85610; 85730; 72050; 73030; 71046; 99285; J7512